=== PATIENT | female | born 1985 ===

== ENCOUNTER 2018-08-16 05:40 | Inpatient (IN) | payer MEDICAID ==
[~2018-08-16 05:40] MED LIST: Citric Acid/Sodium Citrate Solution 30 ML Cup PO ONE; Lactated Ringers 1,000 ML IV SCH; Oxytocin/0.9 % Sodium Chloride 30 UNIT/500 ML BAG IV SCH; Sodium Chloride 0.9% 10 ML SDV IV PRN; Sodium Chloride 0.9% 10 ML Syringe FLUSH PRN; Sodium Chloride 0.9% 2.5 ML Syringe FLUSH PRN
[2018-08-16] MEDS ORDERED: Octyl 2-Cyanoacrylate 1 Tube ONE (07:09)
[2018-08-16] MEDS ORDERED: EPINEPHrine 1 MG/ML SDV ONE (07:15)
[2018-08-16] MEDS ORDERED: Ondansetron 4 MG/2 ML SDV ONE (07:15)
[2018-08-16] MEDS ORDERED: Morphine PF 10 MG/10 ML SDV ONE (07:16)
--- NOTE | 2018-08-16 07:22 | PCM.PREANE ---
Preanesthetic Assessment - Anesthesia/Transfusion/Family Hx Anesthesia History: Prior Anesthesia Without Reaction (prior c/s for breech presentation 14 months ago) Family History of Anesthesia Reaction: No Transfusion History: No Prior Transfusion(s) - Review of Systems General: No Symptoms Pulmonary: No Symptoms Cardiovascular: No Symptoms Gastrointestinal: No Symptoms Neurological: No Symptoms Other: Reports: None - Physical Assessment NPO Status Date: 08/15/18 Height: 5 ft 2 in Weight: 72.575 kg ASA Class: 2 Mental Status: Alert & Oriented x3 Airway Class: Mallampati = 2 Dentition: Reports: Normal Dentition ROM/Head Extension: Full Lungs: Clear to Auscultation, Normal Respiratory Effort Cardiovascular: Regular Rate, Regular Rhythm - Lab Values: Laboratory Last Values WBC 6.05 K/uL (4.0-11.0) 08/15/18 13:59 RBC 4.05 M/uL (4.30-5.90) L 08/15/18 13:59 Hgb 9.1 g/dL (12.0-16.0) L 08/15/18 13:59 Hct 29.8 % (36.0-46.0) L 08/15/18 13:59 MCV 73.6 fL (80.0-98.0) L 08/15/18 13:59 MCH 22.5 pg (27.0-32.0) L 08/15/18 13:59 MCHC 30.5 g/dL (31.0-37.0) L 08/15/18 13:59 RDW Std Deviation 41.7 fl (28.0-62.0) 08/15/18 13:59 RDW Coeff of Charlie 16 % (11.0-15.0) H 08/15/18 13:59 Plt Count 255 K/uL (150-400) 08/15/18 13:59 MPV 10.00 fL (7.40-12.00) 08/15/18 13:59 Nucleated RBC % 0.0 /100WBC 08/15/18 13:59 Nucleated RBCs # 0 K/uL 08/15/18 13:59 Blood Type O POSITIVE 08/15/18 13:59 Antibody Screen NEGATIVE 08/15/18 13:59 - Allergies Allergies/Adverse Reactions: Allergies Allergy/AdvReac Type Severity Reaction Status Date / Time No Known Allergies Allergy Verified 08/10/18 10:26 - Blood Blood Available: No - Anesthesia Plan Pre-Op Medication Ordered: Antacids - Acknowledgements Anesthesia Type Planned: Spinal Pt an Appropriate Candidate for the Planned Anesthesia: Yes Alternatives and Risks of Anesthesia Discussed w Pt/Guardian: Yes Pt/Guardian Understands and Agrees with Anesthesia Plan: Yes Additional Comments: PLAN: spinal with inteathecal duramorph PreAnesthesia Questionnaire HEENT History: Reports: None Cardiovascular History: Reports: None Respiratory History: Reports: None Gastrointestinal History: Reports: Other (See Below) Other Gastrointestinal History: occ heartburn during Genitourinary History: Reports: None, Other (See Below) Other Genitourinary History: UTIs during [employer] History: Reports: Musculoskeletal History: Reports: None Neurological History: Reports: None Psychiatric History: Reports: Mood Swings Endocrine/Metabolic History: Reports: None Hematologic History: Reports: None Immunologic History: Reports: None Oncologic (Cancer) History: Reports: None Dermatologic History: Reports: None - Infectious Disease History Infectious Disease History: Reports: None - Past Surgical History Head Surgeries/Procedures: Reports: None HEENT Surgical History: Reports: Other (See Below) Other HEENT Surgeries/Procedures: dental implant Cardiovascular Surgical History: Reports: None Respiratory Surgical History: Reports: None GI Surgical History: Reports: None Female Surgical History: Reports: Section Endocrine Surgical History: Reports: None Neurological Surgical History: Reports: None Musculoskeletal Surgical History: Reports: None Oncologic Surgical History: Reports: None Dermatological Surgical History: Reports: None - SUBSTANCE USE Smoking Status *Q: Never Smoker Second Hand Smoke Exposure: No Recreational Drug Use History: No - HOME MEDS Home Medications: Home Meds PNV95/Ferrous Fumarate/FA [ Vitamins Tablet] 1 tab PO DAILY 06/06/17 [ History] - CURRENT (IN HOUSE) MEDS Current Meds: Current Medications Lactated Ringer's (Ringers, Lactated) 1,000 mls @ 500 mls/hr IV BOLUS NIKI Oxytocin/Sodium Chloride (Oxytocin 30 Unit/500 Ml-Ns) 30 unit in 500 mls @ 250 mls/hr IV TITRATE NIKI Sodium Chloride (Saline Flush) 10 ml FLUSH ASDIRECTED PRN PRN Reason: Keep Vein Open Sodium Chloride (Saline Flush) 2.5 ml FLUSH ASDIRECTED PRN PRN Reason: Keep Vein Open Sodium Chloride (Normal Saline) 10 ml IV ASDIRECTED PRN PRN Reason: IV Use Discontinued Medications Citric Acid/Sodium Citrate (Bicitra Solution) 30 ml PO ONETIME ONE Stop: 08/15/18 13:43 Epinephrine HCl (Adrenalin) Confirm Administered Dose 1 mg .ROUTE .STK-MED ONE Stop: 08/16/18 07:16 Morphine Sulfate (Duramorph Pf) Confirm Administered Dose 10 mg .ROUTE .STK-MED ONE Stop: 08/16/18 07:17 Octyl Cyanoacrylate (Dermabond Advance) Confirm Administered Dose 1 applic .ROUTE .STK-MED ONE Stop: 08/16/18 07:10 Ondansetron HCl (Zofran) Confirm Administered Dose 4 mg .ROUTE .STK-MED ONE Stop: 08/16/18 07:16
[2018-08-16] MEDS ORDERED: Oxytocin/0.9 % Sodium Chloride 30 UNIT/500 ML BAG ONE (07:25)
[2018-08-16] MEDS ORDERED: Citric Acid/Sodium Citrate Solution 30 ML Cup ONE (07:30)
[2018-08-16] MEDS ORDERED: ceFAZolin/Dextrose,Iso-Osmotic 2 GM/50 ML Duplex Bag IV ONE (08:18)
[2018-08-16] MEDS ORDERED: Sodium Chloride 0.9% 20 ML ONE (08:18)
[2018-08-16] MEDS ORDERED: Phenylephrine/Normal Saline 100 MCG/ML 10 ML Syringe ONE (08:18)
[2018-08-16] MEDS ORDERED: ePHEDrine 50 MG/ML SDV ONE (08:18)
[2018-08-16] MEDS ORDERED: Nalbuphine 10 MG/1 ML Vial IVPUSH PRN (08:40)
[2018-08-16] MEDS ORDERED: Acetaminophen/oxyCODONE 325-5 MG Tab PO PRN (08:56)
[2018-08-16] MEDS ORDERED: Ondansetron 4 MG/2 ML SDV IVPUSH PRN (08:56)
[2018-08-16] MEDS ORDERED: Lanolin 100% Cream 7 GM Tube TOP PRN (08:56)
[2018-08-16] MEDS ORDERED: Bisacodyl 10 MG Supp RECTAL PRN (08:56)
--- NOTE | 2018-08-16 08:59 | PCM.OPNOTE ---
- General Post-Op/Procedure Note Date of Surgery/Procedure: 08/16/18 Operative Procedure(s): Repeat C/section Pre Op Diagnosis: [id number] previous C/section. Post-Op Diagnosis: Same Anesthesia Technique: Spinal Primary Surgeon: Avni Coles EBL in mLs: 650 Complications: None Condition: Good
[2018-08-16] MEDS ORDERED: Lactated Ringers 1,000 ML IV SCH (09:00)
--- NOTE | 2018-08-16 09:24 | OR ---
SURGEON: Avni Coles MD DATE OF PROCEDURE: PREOPERATIVE DIAGNOSIS: Intrauterine at 39 weeks, previous section. POSTOPERATIVE DIAGNOSIS: Intrauterine at 39 weeks, previous section. OPERATION PERFORMED: Repeat low-transverse section. HYDRATE CONTROL TENDER: OR tech. ANESTHESIA: Spinal and Dr. Iker Barksdale. ESTIMATED BLOOD LOSS: 650 mL. COMPLICATIONS: None. INDICATION: A 33 years old with 2 previous section. She is followed in our clinic. She is admitted with elective repeat section. She had no complication. FINDING: Male fetus. score reported to be 8 and 9. Weight is not available. Normal uterus, tubes, and ovaries. PROCEDURE IN DETAIL: The patient was brought to the OR, properly identified and after adequate level of spinal anesthesia with a Rubio catheter in the bladder, the patient was prepped and draped in sterile fashion as usual. Time-out was taken to identify the patient. Once that done, a low-transverse Pfannenstiel skin incision was done excising the old scar. The Ching's fascia and rectus fascia were opened in direction of the incision. The 2 recti muscles were and peritoneal cavity was entered and low transverse uterine incision was done and extended manually with the hand. Fetus was in a vertex position and delivered without any problem, handed to the resuscitating team. The fetus cried immediately. score later on reported to be 8 and 9, and the weight is not available. The placenta delivered spontaneous, complete, and intact and repair of the lower uterine segment done with 2-0 Vicryl continuous interlocking in 2 layers. Inspection of the lower uterine segment shows no oozing, no bleeding. The peritoneal cavity after being evacuated from old blood and blood clot closed with 3-0 Vicryl continuous and the rectus fascia was closed with #1 PDS continuous, Ching's fascia with 3-0 Vicryl continuous and skin closed with skin clips, Insorb, and Dermabond. Instrument, sponge count was correct. The patient tolerated the procedure well, went to recovery room in stable general condition. ANDREINA / JOSÉ MIGUEL /[id number]
[2018-08-16] MEDS: Ketorolac 30 MG/ML SDV IVPUSH SCH ×3 (09:26→20:55)
--- NOTE | 2018-08-16 09:43 | PCM.POSTAN ---
POST ANESTHESIA ASSESSMENT - MENTAL STATUS Mental Status: Alert, Oriented - RESPIRATORY Respiratory Status: Respiratory Rate WNL, Airway Patent, O2 Saturation Stable - CARDIOVASCULAR CV Status: Pulse Rate WNL, Blood Pressure Stable - GASTROINTESTINAL GI Status: No Symptoms - POST OP HYDRATION Hydration Status: Adequate & Stable
[2018-08-16] MEDS ORDERED: oxyCODONE 5 MG Tab PO PRN (10:42)
[2018-08-16] MEDS: Acetaminophen/oxyCODONE 325-5 MG Tab PO PRN (10:52)
[2018-08-16] MEDS: diphenhydrAMINE 50 MG/ML SDV IVPUSH PRN (10:56)
[2018-08-16] MEDS: Docusate Sodium 100 MG Cap PO SCH ×2 (12:32→20:14)
[2018-08-17] MEDS: Ketorolac 30 MG/ML SDV IVPUSH SCH ×2 (04:34→09:50)
[2018-08-17] MEDS: diphenhydrAMINE 50 MG/ML SDV IVPUSH PRN (05:05)
[2018-08-17] MEDS: Docusate Sodium 100 MG Cap PO SCH ×2 (08:27→20:50)
--- NOTE | 2018-08-17 08:40 | PCM.PNPP ---
- General Info Date of Service: 08/17/18 Subjective Update: Patient seen at bedside , she denies any complains. She is ambulating from bed to restroom , tolerating regular diet and she has voided . Her H/H is 7.3/24.2 from . She is asymtomatic denies dizziness , her VSS are wnl , Normal lochia , she is Functional Status: Reports: Pain Controlled, Tolerating Diet, Ambulating, Urinating - Review of Systems General: Reports: No Symptoms HEENT: Reports: No Symptoms Pulmonary: Reports: No Symptoms Cardiovascular: Reports: No Symptoms Gastrointestinal: Reports: No Symptoms Genitourinary: Reports: No Symptoms Musculoskeletal: Reports: No Symptoms Skin: Reports: No Symptoms Neurological: Reports: No Symptoms Psychiatric: Reports: No Symptoms - General Info Date of Service: 08/17/18 - Patient Data Vital Signs - Most Recent: Last Vital Signs Temp 36.6 C 08/17/18 07:30 Pulse 68 08/17/18 07:30 Resp 16 08/17/18 07:30 BP 108/66 08/17/18 07:30 Pulse Ox 95 08/17/18 07:30 Weight - Most Recent: 72.575 kg I&O - Last 24 Hours: Intake & Output 08/16/18 08/17/18 08/17/18 22:59 06:59 14:59 Intake Total 360 Output Total 300 1350 Balance 60 -1350 Lab Results - Last 24 Hours: Laboratory Results - last 24 hr 08/17/18 Range/Units 06:10 Hgb 7.3 L (12.0-16.0) g/dL Hct 24.2 L (36.0-46.0) % Med Orders - Current: Current Medications Bisacodyl (Dulcolax) 10 mg RECTAL ONETIME PRN PRN Reason: Constipation Diphenhydramine HCl (Benadryl) 25 mg IVPUSH Q6H PRN PRN Reason: Itching or Nausea Last Admin: 08/17/18 05:05 Dose: 25 mg Docusate Sodium (Colace) 100 mg PO BID NIKI Last Admin: 08/17/18 08:27 Dose: 100 mg Emollient Ointment (Lansinoh Hpa) 0 gm TOP ASDIRECTED PRN PRN Reason: Sore Nipples Lactated Ringer's (Ringers, Lactated) 1,000 mls @ 500 mls/hr IV BOLUS [facility] Last Admin: 08/16/18 07:34 Dose: 999 mls/hr Oxytocin/Sodium Chloride (Oxytocin 30 Unit/500 Ml-Ns) 30 unit in 500 mls @ 250 mls/hr IV TITRATE [facility] Lactated Ringer's (Ringers, Lactated) 1,000 mls @ 125 mls/hr IV ASDIRECTED [facility] Last Admin: 08/16/18 19:51 Dose: 125 mls/hr Ibuprofen (Motrin) 800 mg PO Q8H PRN PRN Reason: mild pain or fever Ketorolac Tromethamine (Toradol) 30 mg IVPUSH Q6H [facility] Stop: 08/17/18 09:01 Last Admin: 08/17/18 04:34 Dose: 30 mg Nalbuphine HCl (Nubain) 2.5 mg IVPUSH Q3H PRN PRN Reason: Pruritis Stop: 08/17/18 08:40 Last Admin: 08/16/18 19:51 Dose: 2.5 mg Ondansetron HCl (Zofran) 4 mg IVPUSH Q4H PRN PRN Reason: Nausea/Vomiting Last Admin: 08/16/18 20:55 Dose: 4 mg Oxycodone HCl (Oxycodone) 5 mg PO Q6H PRN PRN Reason: Abdominal Pain Oxycodone/Acetaminophen (Percocet 325-5 Mg) 1 tab PO ONETIME PRN PRN Reason: Pain (moderate 4-6) Last Admin: 08/16/18 10:52 Dose: 1 tab Oxycodone/Acetaminophen (Percocet 325-5 Mg) 1 tab PO Q4H PRN PRN Reason: Pain (moderate 4-6) Oxycodone/Acetaminophen (Percocet 325-5 Mg) 2 tab PO Q4H PRN PRN Reason: Pain (moderate 4-6) Sodium Chloride (Saline Flush) 10 ml FLUSH ASDIRECTED PRN PRN Reason: Keep Vein Open Sodium Chloride (Saline Flush) 2.5 ml FLUSH ASDIRECTED PRN PRN Reason: Keep Vein Open Sodium Chloride (Normal Saline) 10 ml IV ASDIRECTED PRN PRN Reason: IV Use Discontinued Medications Cefazolin Sodium/Dextrose (Ancef) Confirm Administered Dose 2 gm IV .STK-MED ONE Stop: 08/16/18 08:19 Citric Acid/Sodium Citrate (Bicitra Solution) 30 ml PO ONETIME ONE Stop: 08/15/18 13:43 Last Admin: 08/16/18 07:34 Dose: 30 ml Citric Acid/Sodium Citrate (Bicitra Solution) Confirm Administered Dose 30 ml .ROUTE .STK-MED ONE Stop: 08/16/18 07:31 Ephedrine Sulfate (Ephedrine Sulfate) Confirm Administered Dose 50 mg .ROUTE .STK-MED ONE Stop: 08/16/18 08:19 Epinephrine HCl (Adrenalin) Confirm Administered Dose 1 mg .ROUTE .STK-MED ONE Stop: 08/16/18 07:16 Oxytocin/Sodium Chloride (Oxytocin 30 Unit/500 Ml-Ns) Confirm Administered Dose 30 unit in 500 mls @ as directed .ROUTE .STK-MED ONE Stop: 08/16/18 07:26 Sodium Chloride (Normal Saline) Confirm Administered Dose 20 mls @ as directed .ROUTE .STK-MED ONE Stop: 08/16/18 08:19 Morphine Sulfate (Duramorph Pf) Confirm Administered Dose 10 mg .ROUTE .STK-MED ONE Stop: 08/16/18 07:17 Octyl Cyanoacrylate (Dermabond Advance) Confirm Administered Dose 1 applic .ROUTE .STK-MED ONE Stop: 08/16/18 07:10 Ondansetron HCl (Zofran) Confirm Administered Dose 4 mg .ROUTE .STK-MED ONE Stop: 08/16/18 07:16 Phenylephrine HCl (Phenylephrine In Ns 100 Mcg/Ml) Confirm Administered Dose 1 mg .ROUTE .STK-MED ONE Stop: 08/16/18 08:19 - Infant Interaction Support Person: Significant Other - Recovery Exam Fundal Tone: Firm Fundal Level: 1 Fingerbreadths Below Umbilicus Fundal Placement: Midline Lochia Amount: Scant Lochia Color: Rubra/Red Perineum Description: Intact, Minimal Bruising/Swelling Episiotomy/Laceration: None Bladder Status: Indwelling Catheter in Place Urinary Elimination: Indwelling Catheter - Exam General: Alert HEENT: Pupils Equal Neck: Supple Lungs: Clear to Auscultation Cardiovascular: Regular Rate, Regular Rhythm GI/Abdominal Exam: Normal Bowel Sounds Extremities: Normal Inspection Wound/Incisions: Dressing Dry and Intact Psy/Mental Status: Alert - Problem List & Annotations (1) delivery delivered SNOMED Code(s): 558838950 Code(s): O82 - ENCOUNTER FOR DELIVERY WITHOUT INDICATION Status: Acute Current Visit: Yes - Problem List Review Problem List Initiated/Reviewed/Updated: Yes - Assessment Assessment:: 33yo yo s/p Repeat , Aneamia , asymptomatic , Normal lochia - Plan Plan:: - Patient offered blood due to aneamia , however she is asymptomatic and would like to decline for now, i informed her to walk around today and is she feels dizzy or extremely fatigue she should inform the nurse she understands the risk of aneamia and will want to try to build up hemoglobin with oral iron. - Pain control as needed - Routine care - Anticipate discharge tomorrow
[2018-08-17] MEDS: Iron Polysaccharides Complex 150 MG Cap PO SCH (10:04)
--- NOTE | 2018-08-17 13:29 | PCM48HPAN ---
Post Anesthesia Note - EVALUATION WITHIN 48HRS OF ANESTHETIC Vital Signs in Normal Range: Yes Patient Participated in Evaluation: Yes Respiratory Function Stable: Yes Airway Patent: Yes Cardiovascular Function Stable: Yes Hydration Status Stable: Yes Pain Control Satisfactory: Yes Nausea and Vomiting Control Satisfactory: Yes Mental Status Recovered: Yes Resp Rate: 16 - COMMENTS/OBSERVATIONS Free Text/Narrative:: Patient up moving around in room. No anesthetic complications noted. Patient without concerns at this time.
[2018-08-17] MEDS: Simethicone 80 MG Tab.Chew PO PRN ×2 (13:42→20:51)
[2018-08-17] MEDS: Ibuprofen 800 MG Tab PO PRN (16:13)
[2018-08-17] MEDS: Acetaminophen/oxyCODONE 325-5 MG Tab PO PRN ×2 (16:34→20:50)
[2018-08-18] MEDS: Ibuprofen 800 MG Tab PO PRN ×2 (00:09→12:12)
[2018-08-18] MEDS: Docusate Sodium 100 MG Cap PO SCH (08:39)
[2018-08-18] MEDS: Iron Polysaccharides Complex 150 MG Cap PO SCH (08:39)
[2018-08-18] MEDS: Acetaminophen/oxyCODONE 325-5 MG Tab PO PRN ×2 (08:42→13:06)
--- NOTE | 2018-08-18 10:27 | PCM.PNPP ---
- General Info Date of Service: 08/18/18 Functional Status: Reports: Pain Controlled, Tolerating Diet, Ambulating, Urinating - Review of Systems General: Reports: No Symptoms - Patient Data Vital Signs - Most Recent: Last Vital Signs Temp 36.6 C 08/18/18 07:25 Pulse 66 08/18/18 07:25 Resp 16 08/18/18 07:25 BP 110/66 08/18/18 07:25 Pulse Ox 97 08/18/18 07:25 Weight - Most Recent: 72.575 kg Lab Results - Last 24 Hours: Laboratory Results - last 24 hr 08/18/18 Range/Units 06:11 WBC 7.52 (4.0-11.0) K/uL RBC 3.10 L (4.30-5.90) M/uL Hgb 6.9 L (12.0-16.0) g/dL Hct 23.0 L (36.0-46.0) % MCV 74.2 L (80.0-98.0) fL MCH 22.3 L (27.0-32.0) pg MCHC 30.0 L (31.0-37.0) g/dL RDW Std Deviation 43.0 (28.0-62.0) fl RDW Coeff of Charlie 16 H (11.0-15.0) % Plt Count 238 (150-400) K/uL MPV 9.90 (7.40-12.00) fL Nucleated RBC % 0.0 /100WBC Nucleated RBCs # 0 K/uL Med Orders - Current: Current Medications Bisacodyl (Dulcolax) 10 mg RECTAL ONETIME PRN PRN Reason: Constipation Diphenhydramine HCl (Benadryl) 25 mg IVPUSH Q6H PRN PRN Reason: Itching or Nausea Last Admin: 08/17/18 05:05 Dose: 25 mg Docusate Sodium (Colace) 100 mg PO BID [facility] Last Admin: 08/18/18 08:39 Dose: 100 mg Emollient Ointment (Lansinoh Hpa) 0 gm TOP ASDIRECTED PRN PRN Reason: Sore Nipples Lactated Ringer's (Ringers, Lactated) 1,000 mls @ 500 mls/hr IV BOLUS [facility] Last Admin: 08/16/18 07:34 Dose: 999 mls/hr Oxytocin/Sodium Chloride (Oxytocin 30 Unit/500 Ml-Ns) 30 unit in 500 mls @ 250 mls/hr IV TITRATE [facility] Lactated Ringer's (Ringers, Lactated) 1,000 mls @ 125 mls/hr IV ASDIRECTED NIKI Last Admin: 08/16/18 19:51 Dose: 125 mls/hr Ibuprofen (Motrin) 800 mg PO Q8H PRN PRN Reason: mild pain or fever Last Admin: 08/18/18 00:09 Dose: 800 mg Ondansetron HCl (Zofran) 4 mg IVPUSH Q4H PRN PRN Reason: Nausea/Vomiting Last Admin: 08/16/18 20:55 Dose: 4 mg Oxycodone HCl (Oxycodone) 5 mg PO Q6H PRN PRN Reason: Abdominal Pain Last Admin: 08/17/18 13:50 Dose: 5 mg Oxycodone/Acetaminophen (Percocet 325-5 Mg) 1 tab PO ONETIME PRN PRN Reason: Pain (moderate 4-6) Last Admin: 08/16/18 10:52 Dose: 1 tab Oxycodone/Acetaminophen (Percocet 325-5 Mg) 1 tab PO Q4H PRN PRN Reason: Pain (moderate 4-6) Oxycodone/Acetaminophen (Percocet 325-5 Mg) 2 tab PO Q4H PRN PRN Reason: Pain (moderate 4-6) Last Admin: 08/18/18 08:42 Dose: 2 tab Polysaccharide Iron Complex (Ferrex 150) 150 mg PO DAILY [facility] Last Admin: 08/18/18 08:39 Dose: 150 mg Simethicone (Simethicone) 80 mg PO ASDIRECTED PRN PRN Reason: Gas Last Admin: 08/17/18 20:51 Dose: 80 mg Sodium Chloride (Saline Flush) 10 ml FLUSH ASDIRECTED PRN PRN Reason: Keep Vein Open Sodium Chloride (Saline Flush) 2.5 ml FLUSH ASDIRECTED PRN PRN Reason: Keep Vein Open Sodium Chloride (Normal Saline) 10 ml IV ASDIRECTED PRN PRN Reason: IV Use Discontinued Medications Cefazolin Sodium/Dextrose (Ancef) Confirm Administered Dose 2 gm IV .STK-MED ONE Stop: 08/16/18 08:19 Citric Acid/Sodium Citrate (Bicitra Solution) 30 ml PO ONETIME ONE Stop: 08/15/18 13:43 Last Admin: 08/16/18 07:34 Dose: 30 ml Citric Acid/Sodium Citrate (Bicitra Solution) Confirm Administered Dose 30 ml .ROUTE .STK-MED ONE Stop: 08/16/18 07:31 Ephedrine Sulfate (Ephedrine Sulfate) Confirm Administered Dose 50 mg .ROUTE .STK-MED ONE Stop: 08/16/18 08:19 Epinephrine HCl (Adrenalin) Confirm Administered Dose 1 mg .ROUTE .STK-MED ONE Stop: 08/16/18 07:16 Oxytocin/Sodium Chloride (Oxytocin 30 Unit/500 Ml-Ns) Confirm Administered Dose 30 unit in 500 mls @ as directed .ROUTE .STK-MED ONE Stop: 08/16/18 07:26 Sodium Chloride (Normal Saline) Confirm Administered Dose 20 mls @ as directed .ROUTE .STK-MED ONE Stop: 08/16/18 08:19 Ketorolac Tromethamine (Toradol) 30 mg IVPUSH Q6H NIKI Stop: 08/17/18 09:01 Last Admin: 08/17/18 09:50 Dose: 30 mg Morphine Sulfate (Duramorph Pf) Confirm Administered Dose 10 mg .ROUTE .STK-MED ONE Stop: 08/16/18 07:17 Nalbuphine HCl (Nubain) 2.5 mg IVPUSH Q3H PRN PRN Reason: Pruritis Stop: 08/17/18 08:40 Last Admin: 08/16/18 19:51 Dose: 2.5 mg Octyl Cyanoacrylate (Dermabond Advance) Confirm Administered Dose 1 applic .ROUTE .STK-MED ONE Stop: 08/16/18 07:10 Ondansetron HCl (Zofran) Confirm Administered Dose 4 mg .ROUTE .STK-MED ONE Stop: 08/16/18 07:16 Phenylephrine HCl (Phenylephrine In Ns 100 Mcg/Ml) Confirm Administered Dose 1 mg .ROUTE .STK-MED ONE Stop: 08/16/18 08:19 - Interaction Disposition, : in Room with Family Infant Interaction: Holding Infant Feeding: Bottle Fed Infant Support Person: Significant Other - Recovery Exam Fundal Tone: Firm Fundal Level: 1 Fingerbreadths Above Umbilicus Fundal Placement: Midline Lochia Amount: Scant Lochia Color: Rubra/Red Perineum Description: Intact, Minimal Bruising/Swelling Episiotomy/Laceration: None Bladder Status: Voiding Urinary Elimination: Voided - Exam General: Alert, Oriented HEENT: Pupils Equal Neck: Supple Lungs: Clear to Auscultation, Normal Respiratory Effort Cardiovascular: Regular Rate, Regular Rhythm GI/Abdominal Exam: Normal Bowel Sounds, Soft, Non-Tender, No Organomegaly, No Distention, No Mass Extremities: Normal Inspection, Non-Tender, No Pedal Edema Skin: Warm, Dry, Intact Wound/Incisions: Healing Well Neurological: No New Focal Deficit Psy/Mental Status: Alert, Normal Affect, Normal Mood - Problem List & Annotations (1) delivery delivered SNOMED Code(s): 270443381 Code(s): O82 - ENCOUNTER FOR DELIVERY WITHOUT INDICATION Status: Acute Current Visit: Yes - Problem List Review Problem List Initiated/Reviewed/Updated: Yes - My Orders Last 24 Hours: My Active Orders 08/17/ 13:30 Simethicone 80 mg PO ASDIRECTED PRN - Assessment Assessment:: POD#2 after repeat low transverse , she has chronic anemia complicated by anemia, current hemoglobin is 6.9. She states she is asymptomatic , denies dizziness, shortness of breath or chest pain. She declines transfusion at this time, but will monitor with some self awareness through the day if she wants to proceed she has been appropriately consented including risks of infection, transfusion reaction, clerical error and developing minor antibodies. She declines, and will use OTC iron - Plan Plan:: Dismiss to home. Discharge instructions given.
== END 2018-08-18 13:28 | disposition home or self-care (01) | DRG 788 ==
LOC: MW.OB 05:40
PROVIDERS: ADMIT Obstetrics & Gynecology; ATTEND Obstetrics & Gynecology
PROC: 10D00Z1 Extraction of Products of Conception, Low, Open Approach (ICD-10-PCS; principal; 2018-08-16)
DX: O34.219 Maternal care for unspecified type scar from previous cesarean delivery (principal); Z3A.39 39 weeks gestation of pregnancy; Z37.0 Single live birth; O99.03 Anemia complicating the puerperium; D64.9 Anemia, unspecified
CPT/HCPCS: 36415; 59025; 85014; 85018; 85027; 86850; 86900; 86901; A9270-GY; J0171; J0690; J1200; J1885; J2270; J2300; J2370; J2405; J7120